=== PATIENT | female | born 1940 | race Caucasian/White ===

== ENCOUNTER 2017-08-09 09:57 | Emergency (ER) | payer MEDICARE, OTHER ==
[~2017-08-09] VITALS: Ht 165.1 cm; Wt 83.8 kg
[~2017-08-09 09:57] MED LIST: BENZ100C17 PO; ENOX80SY5 SQ; FLUT16SP NAS; LETR2.5T PO; LEVO25TA4 PO; MAGN100T6 PO; MELA1TAB8 PO; Magnesium Oxide PO; OMEP-110 PO; OMEP20TA62 PO; SIMV5TAB PO; SUCR1ORA5 PO; SUCR1TAB33 PO; TAMO20TA PO; WARF5TAB PO; WARF7.5T6 PO-COUM
[2017-08-09] MEDS ORDERED: SODIUM CHLORIDE FLUSH 10ML SYR IVF ONE (11:00)
[2017-08-09] MEDS ORDERED: ONDANSETRON 2MG/ML, 2ML IVPush ONE (11:00)
[2017-08-09] MEDS ORDERED: HYDROmorphone 1 MG/ML, 1ML IVPush PRN (11:00)
[2017-08-09] MEDS ORDERED: SODIUM CHLORIDE 0.9% 1,000ML IVBOLUS ONE (11:00)
[2017-08-09 11:10] LABS: HEMATOCRIT 30.6 % (34.6-47.8)
[2017-08-09 11:15] LABS: BLOOD UREA NITROGEN 15 mg/dL (7-18)
[2017-08-09 11:18] LABS: PATH.CAST-FLAG NOT PRESENT; SPERM-FLAG NOT PRESENT; SRC-FLAG NOT PRESENT; XTAL-FLAG NOT PRESENT; YLC-FLAG NOT PRESENT
[2017-08-09] MEDS ORDERED: OMNIPAQUE 350 MG/ML, 100ML BOTTLE ONE (11:39)
[2017-08-09] MEDS ORDERED: METRONIDAZOLE PMX 500MG/100ML 100 ML ONE (12:10)
[2017-08-09] MEDS ORDERED: AMPICILLIN/SULBACTAM 3 GM in SODIUM CHLORIDE 0.9% 100 ML IV ONE (12:30)
[2017-08-09] MEDS ORDERED: METRONIDAZOLE PMX 500MG/100ML 100 ML IV ONE (12:30)
[2017-08-09 13:07] VITALS: BP 104/43
== END 2017-08-09 13:51 | disposition home or self-care (01) ==
LOC: ED 11:05
DX: K57.32 Diverticulitis of large intestine without perforation or abscess without bleeding (principal); D50.0 Iron deficiency anemia secondary to blood loss (chronic); R10.32 Left lower quadrant pain; E78.5 Hyperlipidemia, unspecified; Z86.711 Personal history of pulmonary embolism; Z85.3 Personal history of malignant neoplasm of breast; Z90.49 Acquired absence of other specified parts of digestive tract; Z90.710 Acquired absence of both cervix and uterus; Z88.6 Allergy status to analgesic agent
CPT/HCPCS: 36415; 74177; 80048; 81001; 82040; 85025; 85610; 87086; 93005; 96361; 96365; 96367; 99285; J0295; J7030; Q9967

== ENCOUNTER 2017-10-06 18:13 | Emergency (ER) | payer MEDICARE, OTHER ==
[~2017-10-06] VITALS: Ht 165.1 cm; Wt 85.8 kg
[2017-10-06 19:01] LABS: HEMATOCRIT 29.8 % (34.6-47.8); HEMOGLOBIN 9.6 g/dL (11.7-16.4); WHITE BLOOD COUNT 5.2 x10^3/uL (3.4-10)
[2017-10-06 19:10] LABS: BLOOD UREA NITROGEN 17 mg/dL (7-18)
[2017-10-06 19:26] LABS: PATH.CAST-FLAG NOT PRESENT; SPERM-FLAG NOT PRESENT; SRC-FLAG NOT PRESENT; XTAL-FLAG NOT PRESENT; YLC-FLAG NOT PRESENT
[2017-10-06 20:38] VITALS: BP 109/74
== END 2017-10-06 20:40 | disposition home or self-care (01) ==
LOC: ED 18:58
DX: N30.00 Acute cystitis without hematuria (principal); E78.5 Hyperlipidemia, unspecified; Z86.711 Personal history of pulmonary embolism; Z85.3 Personal history of malignant neoplasm of breast; Z90.49 Acquired absence of other specified parts of digestive tract; Z90.710 Acquired absence of both cervix and uterus
CPT/HCPCS: 36415; 76770; 80048; 81001; 82040; 85025; 87077; 87086; 87186; 99285